=== PATIENT | female | born 1960 | race Caucasian/White ===

== ENCOUNTER 2025-05-24 14:02 | Outpatient (CLI) | payer OTHER | END 2025-05-24 14:03 | disposition home or self-care (01) | LOC: BICMAMMO 14:02 | PROVIDERS: ATTEND Family Medicine | DX: Z12.31 Encounter for screening mammogram for malignant neoplasm of breast (principal); Z78.0 Asymptomatic menopausal state; Z91.89 Other specified personal risk factors, not elsewhere classified | CPT/HCPCS: 77063; 77067; 77080 ==

== ENCOUNTER 2025-06-27 14:48 | Outpatient (CLI) | payer OTHER | END 2025-06-27 14:49 | disposition home or self-care (01) | LOC: CT 14:48 | PROVIDERS: ATTEND Family Medicine | DX: N39.0 Urinary tract infection, site not specified (principal); R30.9 Painful micturition, unspecified; R31.9 Hematuria, unspecified | CPT/HCPCS: 74176 ==